=== PATIENT | male | born 1945 | race Caucasian/White ===

== ENCOUNTER 2019-06-10 19:53 | Inpatient (IN) | payer OTHER ==
[~2019-06-10] VITALS: Ht 182.9 cm; Wt 93.9 kg
[~2019-06-10 19:53] MED LIST: ASPIRIN325 PO; AVELOX 400 MG400 MG PO; CORDARONE PO; COREG PO; DILTIAZEM ER120 M1 PO; DOXYCYCLINE 10100 MG; ENALAPRIL-HCTZ1 EAC1 PO; Folic Acid PO; LANOXIN 0.25M0.25 M1 PO; LOPRESSOR PO; MULTIVITAMINS PO; OMEGA-31000 MG PO; PRADAXA150 MG PO
[2019-06-10 20:14] VITALS: BP 87/61
[2019-06-10 20:17] LABS: ABSOLUTE BASOPHILS 0.1 thou/uL (0.0-0.2); ABSOLUTE EOSINOPHILS 0.2 thou/uL (0.0-0.7); ABSOLUTE LYMPHOCYTES 2.4 thou/uL (0.8-5.3); ABSOLUTE MONOCYTES 0.9 thou/uL (0.0-1.2); ABSOLUTE NEUTROPHILS 5.2 thou/uL (1.6-8.1); BASOPHILS 1.4 %; EOSINOPHILS 2.1 %; HEMATOCRIT 48.9 % (42.0-52.0); HEMOGLOBIN 16.6 gm/dL (14.0-18.0); LYMPHOCYTES 27.2 %; MCHC 33.9 g/dL (28.0-37.0); MCV 94.2 fL (80.0-100.0); MONOCYTES 9.8 %; MPV 8.9 fl. (7.2-11.1); NUCLEATED RBCS 0 /100WBC; PLATELET COUNT* 211 thou/uL (150-400); POLYS 59.5 %; RBC 5.19 mil/uL (4.50-6.00); RDW-CV 13.3 % (10.5-14.5); WBC 8.7 thou/uL (4.0-11.0)
[2019-06-10 20:25] LABS: CALCIUM 9.4 mg/dL (8.5-10.1); POTASSIUM 4.7 mmol/L (3.5-5.1)
[2019-06-10 20:29] LABS: APTT 27.3 Seconds (25.0-31.3); INR 1.1; PROTIME 11.3 Seconds (9.20-11.50)
[2019-06-10 20:40] LABS: ALBUMIN 3.8 g/dL (3.4-5.0); TOTAL BILIRUBIN 0.4 mg/dL (<0.1-1.0); TOTAL PROTEIN 8.2 g/dL (6.4-8.2)
[2019-06-10 21:25] LABS: URINE BILIRUBIN NEGATIVE (Negative); URINE BLOOD NEGATIVE (Negative); URINE CLARITY CLEAR; URINE COLOR YELLOW; URINE GLUCOSE-RANDOM NEGATIVE (Negative); URINE KETONES NEGATIVE (Negative); URINE LEUKOCYTES NEGATIVE (Negative); URINE NITRITE NEGATIVE (Negative); URINE PROTEIN NEGATIVE (Negative); URINE SPECIFIC GRAVITY <= 1.005 (1.005-1.030); URINE UROBILINOGEN 0.2 E.U./dl (0.2-1.0)
[2019-06-10] MEDS ORDERED: TOPROL XL100 MG PO (22:27)
[2019-06-10] MEDS ORDERED: COZAAR 25 MG TA25 M1 PO (22:27)
[2019-06-10] MEDS ORDERED: COQ-10100 MG PO (22:28)
[2019-06-10] MEDS ORDERED: ASA81BEC PO (22:28)
[2019-06-10] MEDS ORDERED: KRILL OIL500 MG PO (22:29)
[2019-06-10] MEDS ORDERED: VITAMIN D350 MC1 PO (22:29)
[2019-06-10] MEDS ORDERED: TRELEGY ELLIPT1 EACH INH (22:30)
[2019-06-10] MEDS ORDERED: MAGNESIUM250 M1 PO (22:30)
[2019-06-11] VITALS (18 sets, daily range): BP systolic 107–137; BP diastolic 74–90
--- NOTE | 2019-06-11 08:50 | EKG ---
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1945 Requested By: Kristyn Elizabeth Order Number: [id number] MD: Juan Hayden Measurements Intervals [place] Rate: 144 P: TX: QRS: 49 QRSD: 83 T: 88 QT: 301 QTc: 466 Interpretive Statements Atrial fibrillation Repolarization abnormality, prob rate related Compared to ECG 11/29/2010 06:03:14 Aberrant conduction of supraventricular beat(s) no longer present Left ventricular hypertrophy no longer present atrial fibrillation noted Electronically Signed On 06-11-2019 8:49:06 [employer] by Juan Hayden [email or web address] <ELECTRONICALLY SIGNED> By: Juan Hayden MD, FAC 06/11/19 0849 18 18 Juan Hayden MD, FAC /EPI
[2019-06-11 09:10] LABS: CHOLESTEROL 169 mg/dL (<200); HDL CHOLESTEROL 45 mg/dL (>40); LDL CHOLESTEROL 112 mg/dL (<100); TC:HDL 3.8 Ratio (Not establshd); TRIGLYCERIDE 62 mg/dL (<150); VLDL 12 mg/dL (<40)
[2019-06-11 09:11] LABS: SERUM ASSESSMENT Clear
[2019-06-11 11:38] LABS: ABSOLUTE EOSINOPHILS 0.2 thou/uL (0.0-0.7); ABSOLUTE LYMPHOCYTES 2.1 thou/uL (0.8-5.3); ABSOLUTE MONOCYTES 0.7 thou/uL (0.0-1.2); ABSOLUTE NEUTROPHILS 4.7 thou/uL (1.6-8.1); BASOPHILS 0.1 %; EOSINOPHILS 2.6 %; HEMATOCRIT 45.2 % (42.0-52.0); HEMOGLOBIN 15.1 gm/dL (14.0-18.0); MCH 31.5 pg (26.0-34.0); MCHC 33.5 g/dL (28.0-37.0); MCV 94.2 fL (80.0-100.0); MONOCYTES 8.6 %; MPV 8.8 fl. (7.2-11.1); NUCLEATED RBCS 0 /100WBC; PLATELET COUNT* 188 thou/uL (150-400); POLYS 61.7 %; RDW-CV 13.8 % (10.5-14.5); WBC 7.7 thou/uL (4.0-11.0)
[2019-06-11 11:42] LABS: CALCIUM 8.6 mg/dL (8.5-10.1); POTASSIUM 4.4 mmol/L (3.5-5.1)
--- NOTE | 2019-06-11 13:26 | 2DMMODE ---
[place] [address] 2 D/M-MODE ECHOCARDIOGRAM Name: BALDOMERO RUIZ Room: [address] IN [facility]#: [id number] Admission: 06/10/19 Attend Phys: Peter Moffett, Discharge: Date of : 45 Date of Service: 06/11/19 1325 Report #: [id number] THIS REPORT FOR: cc: Nilay Márquez MD, Anthony MD Blick,Juan Ching MD [facility] ~ APPROVED REPORT Study performed: 06/11/2019 10:52:25 EXAM: Comprehensive 2D, Doppler, and color-flow Echocardiogram Patient Location: In-Patient Room #: 002 Status: routine BSA: 2.16 HR: 84 bpm BP: 119/73 mmHg Rhythm: NSR Other Information Study Quality: Good Indications CVA/TIA Echo Enhancing Agent Indication: Rule out Shunt Agent(s) / Amount(s) Used: Agitated Saline 10 cc 2D Dimensions IVSd: 10.16 (7-11mm) LVOT Diam: 20.09 (18-24mm) LVDd: 54.83 mm PWd: 10.93 (7-11mm) LVDs: 43.79 (25-40mm) Aortic Root: 33.11 mm Volumes Left Atrial Volume (Systole) LA ESV Index: 54.50 mL/m2 Aortic Valve AoV Peak Lisandro.: 1.47 m/s AO Peak Gr.: 8.63 mmHg LVOT Max P.95 mmHg AO Mean Gr.: 4.88 mmHg LVOT Mean P.[address] [address] 2 D/M-MODE ECHOCARDIOGRAM Name: BALDOMERO RUIZ Room: [address] IN [facility]#: [id number] Admission: 06/10/19 Attend Phys: Peter Moffett, Discharge: Date of : 45 Date of Service: 06/11/19 1325 Report #: [id number] LVOT Max V: 0.99 m/s AO V2 VTI: 24.02 cm LVOT Mean V: 0.64 m/s MATEUSZ (VTI): 2.07 cm2 LVOT V1 VTI: 15.67 cm AI Hinds: 2.44 m/s2 AI PHT: 505.34 ms Mitral Valve MV Decel. Time: 128.14 ms MV PHT: 37.16 ms MVA (PHT): 5.92 cm2 TDI Medial E' Lisandro.: 0.11 m/s Lateral E' Lisandro.: 0.13 m/s Pulmonary Valve PV Peak Lisandro.: 0.78 m/s PV Peak Gr.: 2.41 mmHg Tricuspid Valve RAP Estimate: 5.00 mmHg TR Peak Gr.: 27.00 mmHg RVSP: 32.00 mmHg PA Pressure: 32.00 mmHg Left Ventricle The left ventricle is normal size. There is global hypokinesis of the left ventricle. There is normal left ventricular wall thickness. Left ventricular systolic function is borderline. LVEF is 50-55%. This study is not technically sufficient to allow evaluation of the LV diastolic function due to atrial fibrillation. Right Ventricle The right ventricle is normal size. The right ventricular systolic function is normal. Atria Left atrium is severely dilated. The interatrial septum is intact with no evidence for an atrial septal defect. The right atrium size is normal. Aortic Valve Mild aortic valve sclerosis. Mild aortic regurgitation. There is no aortic valvular stenosis. Mitral Valve The mitral valve is normal in structure. Mild mitral regurgitation. No evidence of [place] [address] 2 D/M-MODE ECHOCARDIOGRAM Name: BALDOMERO RUIZ Room: [address]#: [id number] Admission: 06/10/19 Attend Phys: Peter Moffett, Discharge: Date of : 45 Date of Service: 06/11/19 1325 Report #: [id number] Tricuspid Valve The tricuspid valve is normal in structure. Mild tricuspid regurgitation. estimated pa pressure 35 mm Hg Pulmonic Valve The pulmonary valve is normal in structure. There is no pulmonic valvular regurgitation. Great Vessels The aortic root is normal in size. IVC is normal in size and collapses >50% with inspiration. Pericardium There is no pericardial effusion. <Conclusion> LVEF is 50-55%. Left atrium is severely dilated. Mild aortic valve sclerosis. Mild aortic regurgitation. Mild mitral regurgitation. The interatrial septum is intact with no evidence for an atrial septal defect. Mild tricuspid regurgitation. estimated pa pressure 35 mm Hg <ELECTRONICALLY SIGNED> By: Juan Hayden MD, FACC 06/11/19 1325 1325 Juan Hayden MD, FACC /INF
--- NOTE | 2019-06-11 17:21 | CON ---
[address] [address] CONSULTATION Name: BALDOMERO RUIZ Room: [address] IN .R.#: [id number] Admission: 06/10/19 Attend Phys: Peter Moffett MD Discharge: Date of : 45 Report #: [id number] THIS REPORT FOR: //name// cc: Nilay Márquez MD, Anthony MD ~ THIS REPORT FOR: //name// CC: Nilay Moffett DATE OF SERVICE: 06/11/2019 CARDIOLOGY CONSULTATION HISTORY OF PRESENT ILLNESS: The patient is a 74-year-old white male who I was asked to see in the ICU today after he had atrial fibrillation. The patient has a long history of paroxysmal atrial fibrillation. He has previous been followed carefully by my partner, Dr. Hays. He apparently was cardioverted 3 years ago. However, he had permanent atrial fibrillation and decided aim for rate control. He refused anticoagulation in the past. However, he has had no bleeding problems. He is not very active at this time. He denies a history of chest pain, shortness of breath, palpitations, syncope or peripheral edema. The patient was doing well until yesterday. Apparently, family member states that in the afternoon, he had difficulty speaking. He had problems swallowing and had emesis. His speech was somewhat slurred. His daughter brought him to the hospital. He is felt to be having a stroke. Cardiology consultation was requested. He denies a history of chest pain, shortness of breath or fever. PAST MEDICAL HISTORY: Otherwise, he has had a tonsillectomy, appendectomy, knee surgery, hypertension, no diabetes, no hyperlipidemia. CURRENT MEDICATIONS: Include digoxin, metoprolol, losartan, aspirin. He used to be on amiodarone and Pradaxa, but is no longer taking those. ALLERGIES: HE HAS AN ALLERGY TO PENICILLIN. FAMILY HISTORY: His sister had a stent. SOCIAL HISTORY: He is . He and his live in [place], [place]. Continues to work in a farm. Quit smoking years ago. No alcohol use. REVIEW OF SYSTEMS: He has had no previous history of stroke, asthma, liver disease, kidney disease, cancer, chronic skin condition [place] [address] CONSULTATION Name: BALDOMERO RUIZ Room: [address]#: [id number] Admission: 06/10/19 Attend Phys: Peter Moffett MD Discharge: Date of : 45 Report #: [id number] PHYSICAL EXAMINATION: GENERAL: Revealed an elderly male, appeared in no distress. VITAL SIGNS: He had a blood pressure of 150/80, pulse is 80, he is afebrile. HEENT: He was anicteric. Conjunctivae are pink. Mucous membranes moist. NECK: Veins nondistended. No carotid bruits. Neck supple. CHEST: Clear to auscultation. CARDIOVASCULAR: Irregular rhythm. No significant murmur. ABDOMEN: Soft. EXTREMITIES: Had no edema. SKIN: Warm and dry. NEUROLOGIC: Nonfocal. His ECG showed an atrial fibrillation with an increased ventricular response rate, nonspecific ST and T-wave change. His workup, he had previous echocardiogram in 2016 that showed ejection fraction of 50%, aortic sclerosis. He had CT scan of the head performed without contrast that showed no evidence of hemorrhage, chronic small vessel changes, possible recent myocardial infarction. He had a carotid Doppler study performed that showed mild narrowing, but no high-grade stenosis. He had a chest x-ray that showed no acute abnormality. LABORATORY DATA: Sodium 141, creatinine 1.0. Liver function studies were normal. Troponin 0.06. BNP 1747. Cholesterol 169, triglyceride 62, HDL 45, LDL 112. TSH 2.0. White blood cell count 7.7, hemoglobin 15.1. IMPRESSION AND RECOMMENDATIONS: 1. Atrial fibrillation. Rate controlled with digoxin and a beta jadyn. 2. Stroke. Suspect embolic event from atrial fibrillation. Recommend anticoagulation when okay with Neurology. 3. Hypertension. The patient has been on a beta jadyn, ARB. 4. Hyperlipidemia. Recommend a statin drug. 5. Degenerative joint disease. <ELECTRONICALLY SIGNED> By: Juan Hayden MD, FACC 06/11/19 1721 1302 [id number] Hayden MD, FACC /nt
[2019-06-12 02:13] VITALS: BP 105/48
[2019-06-12 03:00] VITALS: BP 96/64
[2019-06-12 03:57] LABS: ALBUMIN 3.1 g/dL (3.4-5.0); CALCIUM 8.2 mg/dL (8.5-10.1); POTASSIUM 4.3 mmol/L (3.5-5.1); TOTAL BILIRUBIN 0.6 mg/dL (<0.1-1.0); TOTAL PROTEIN 6.7 g/dL (6.4-8.2)
[2019-06-12 04:00] VITALS: BP 110/80
[2019-06-12 05:00] VITALS: BP 117/72
[2019-06-12 06:01] VITALS: BP 114/64
[2019-06-12 20:18] VITALS: BP 124/84
[2019-06-13 00:43] VITALS: BP 114/83
[2019-06-13 02:06] LABS: GLYCOHEMOGLOBIN (HGB A1C) 5.7 % (4.8-5.6)
[2019-06-13 04:58] VITALS: BP 125/75
[2019-06-13 08:22] VITALS: BP 138/89
[2019-06-13] MEDS ORDERED: LIPITOR40 MG PO (09:28)
[2019-06-13] MEDS ORDERED: ELIQUIS5 MG PO (09:31)
[2019-06-13] MEDS ORDERED: METFORMIN HCL500 M3 PO (09:31)
[2019-06-13] MEDS ORDERED: TOPROL XL100 MG PO (09:31)
[2019-06-13 10:38] VITALS: BP 138/89
[2019-06-13 11:13] VITALS: BP 138/89
== END 2019-06-13 12:42 | disposition home health service (06) | DRG 64 ==
LOC: M.ERS 19:53 → M.TBA-ER 22:55 → M.ICU 22:55
PROVIDERS: Emergency Medicine; Family Medicine; ADMIT Internal Medicine
DX: I63.512 Cerebral infarction due to unspecified occlusion or stenosis of left middle cerebral artery (principal); G93.41 Metabolic encephalopathy; I48.20 Chronic atrial fibrillation, unspecified; D68.59 Other primary thrombophilia; I48.21 Permanent atrial fibrillation; E78.5 Hyperlipidemia, unspecified; R73.03 Prediabetes; I10 Essential (primary) hypertension; R47.02 Dysphasia; F17.210 Nicotine dependence, cigarettes, uncomplicated; R47.81 Slurred speech; M19.90 Unspecified osteoarthritis, unspecified site; I48.0 Paroxysmal atrial fibrillation; Z88.0 Allergy status to penicillin; Z79.82 Long term (current) use of aspirin; Z79.899 Other long term (current) drug therapy; Z90.49 Acquired absence of other specified parts of digestive tract; Z87.01 Personal history of pneumonia (recurrent); Z82.49 Family history of ischemic heart disease and other diseases of the circulatory system; Z79.01 Long term (current) use of anticoagulants; Z72.89 Other problems related to lifestyle; Z91.14 Patient's other noncompliance with medication regimen

== ENCOUNTER → 2019-11-05 | Outpatient (CLI) | payer OTHER ==
[~2019-11-05] MED LIST changes: +ASA81BEC PO; +COQ-10100 MG PO; +COZAAR 25 MG TA25 M1 PO; +ELIQUIS5 MG PO; +KRILL OIL500 MG PO; +LIPITOR40 MG PO; +MAGNESIUM250 M1 PO; +METFORMIN HCL500 M3 PO; +TOPROL XL100 MG PO; +TRELEGY ELLIPT1 EACH INH; +VITAMIN D350 MC1 PO
== END ==
LOC: M.LAB 10:27
PROVIDERS: ATTEND Registered Nurse
DX: I48.20 Chronic atrial fibrillation, unspecified (principal)